=== PATIENT | female | born 2005 | race Two or more races ===

== ENCOUNTER 2025-01-19 15:50 | Inpatient (IN) | payer OTHER ==
[~2025-01-19] VITALS: Ht 175.3 cm; Wt 99.1 kg
[2025-01-19 19:09] LABS: PLATELET COUNT (AUTO) 222 K/uL (150-450); RED BLOOD CELL COUNT(AUTO) 4.40 MIL/uL (4.00-5.20); RED CELL DISTRIBUTION WIDTH 13.1 % (11.5-14.5); WHITE BLOOD COUNT (AUTO) 7.2 K/uL (4.5-11.0)
[2025-01-19 19:16] LABS: CALCIUM, TOTAL 8.8 mg/dL (8.8-10.5); CREATININE 0.92 mg/dL (0.60-1.30); GLOMERULAR FILTR. RATE CALC > 60 mL/min (>60); GLUCOSE,RANDOM 104 mg/dL (70-110); SODIUM SERUM 141 mmol/L (136-145); UREA NITROGEN, BLOOD 5 mg/dL (7-18)
[2025-01-19 19:52] LABS: COVID AG,FIA SOURCE NASAL SWAB
[2025-01-19 20:24] LABS: SARS-COV2 (COVID) ANTIGEN,FIA Negative (Negative)
[2025-01-19] MEDS: IBUPROFEN 600 MG TABLET PO ONE (20:46)
[2025-01-20 00:15] VITALS: BP 128/95; PULSE 81; RESP 20; TEMP 98.5; O2SAT 95
[2025-01-20] MEDS ORDERED: INFLUENZA VIRUS VACCINE TVS (6MO+) 2025-26/PF 45 MCG/0.5 ML SYRINGE IM. ONE (00:30)
[2025-01-20] MEDS ORDERED: PROMETHAZINE HCL 25 MG TABLET PO PRN (10:15)
[2025-01-20] MEDS ORDERED: OLANZapine 5 MG RAPDIS TABLET PO PRN (10:15)
[2025-01-20] MEDS ORDERED: MAG HYDROX/ALUMINUM HYD/SIMETH ES 30 ML SUSPENSION UDCUP PO PRN (10:15)
[2025-01-20] MEDS ORDERED: LOPERAMIDE HCL 2 MG CAPSULE PO PRN ×2 (10:15)
[2025-01-20] MEDS ORDERED: ACETAMINOPHEN 325 MG TABLET PO PRN (10:15)
[2025-01-20] MEDS ORDERED: MAGNESIUM HYDROXIDE SUSPENSION 30 ML UDCUP PO PRN (10:15)
[2025-01-20] MEDS ORDERED: ZOLPIDEM TARTRATE 10 MG TABLET PO PRN (10:15)
[2025-01-20] MEDS ORDERED: GuaiFENesin/D-METHORPHAN [SUGAR-FREE] 200-20MG/10 ML SYRUP UDCUP PO PRN (10:15)
[2025-01-20] MEDS: POTASSIUM CHLORIDE 20 MEQ ER TABLET PO ONE ×2 (13:15→23:56)
[2025-01-20] MEDS: OLANZapine 5 MG RAPDIS TABLET PO SCH (13:17)
[2025-01-20 15:59] VITALS: BP 124/86; PULSE 71; RESP 17; TEMP 98.1; O2SAT 98
[2025-01-20] MEDS: THIAMINE 100 MG TABLET PO SCH (17:11)
[2025-01-20] MEDS ORDERED: DIVALPROEX SODIUM 500 MG ER TABLET PO SCH (21:00)
[2025-01-20 23:50] VITALS: BP 122/82; PULSE 72; RESP 18; TEMP 97.8; O2SAT 98
[2025-01-20] MEDS: MELATONIN 5 MG TABLET PO SCH (23:55)
[2025-01-20] MEDS: LITHIUM CARBONATE 300 MG CAPSULE PO SCH (23:56)
[2025-01-21 08:17] VITALS: BP 120/67; PULSE 60; RESP 17; TEMP 98.4; O2SAT 98
[2025-01-21] MEDS: ATOMOXETINE HCL 25 MG CAPSULE PO SCH (08:32)
[2025-01-21] MEDS: MULTIVITAMINS WITH MINERALS, THERAPEUTIC TABLET PO SCH (08:32)
[2025-01-21] MEDS: NALTREXONE HCL 50 MG TABLET PO SCH (08:32)
[2025-01-21] MEDS: FOLIC ACID 1 MG TABLET PO SCH (08:32)
[2025-01-21] MEDS: PALIPERIDONE PALMITATE 234 MG/1.5 ML SYRINGE IM ONE (08:44)
[2025-01-21 09:32] LABS: APPEARANCE,URINE CLEAR (CLEAR); GLUCOSE, URINE (UA) NEGATIVE (NEGATIVE); LEUKOCYTE ESTERASE ,URINE NEGATIVE (NEGATIVE); NITRATE,URINE NEGATIVE (NEGATIVE); OCCULT BLOOD,URINE NEGATIVE (NEGATIVE); PH,URINE DRUG SCREEN 7.0 (5.0-8.0); SPECIFIC GRAVITIY, URINE 1.018 (1.003-1.030)
[2025-01-21 09:36] LABS: CHOL/HDL RATIO 3.0 (3.9-5.7); LDL CHOL (CALC.) 95.0 mg/dL (0-130)
[2025-01-21 09:54] LABS: AMPHET/METH SCREEN,URINE NEGATIVE (NEGATIVE); BARBITURATE SCREEN, URINE NEGATIVE (NEGATIVE); CANNABINOID SCREEN,URINE POSITIVE (NEGATIVE); COCAINE SCREEN,URINE POSITIVE (NEGATIVE); METHADONE SCREEN, URINE NEGATIVE (NEGATIVE)
[2025-01-21 09:55] LABS: ALCOHOL, URINE DRUG SCREEN NEGATIVE (NEGATIVE)
[2025-01-21] MEDS: TUBERCULIN, PURIFIED PROTEIN DERIVATIVE 5 TU/0.1 ML SYRINGE ID ONE (16:40)
[2025-01-21 20:14] VITALS: BP 114/81; PULSE 72; RESP 19; TEMP 97.5; O2SAT 97
[2025-01-21] MEDS ORDERED: LITH300C3 PO (22:13)
[2025-01-21] MEDS ORDERED: PALI117D IM (22:13)
[2025-01-21] MEDS ORDERED: ATOM40CA9 PO (22:13)
[2025-01-21] MEDS ORDERED: NALT50TA33 PO (22:13)
[2025-01-21] MEDS ORDERED: PALI156D IM (22:13)
[2025-01-21] MEDS ORDERED: MELA5TAB40 PO (22:13)
[2025-01-22 08:18] VITALS: BP 103/81; PULSE 64; RESP 18; TEMP 97.1; O2SAT 98
[2025-01-22 08:41] VITALS: BP 103/81; PULSE 64; RESP 18; TEMP 97.1; O2SAT 98
[2025-01-22] MEDS: ATOMOXETINE HCL 40 MG CAPSULE PO SCH (08:49)
[2025-01-25] MEDS ORDERED: PALIPERIDONE PALMITATE 156 MG/ML SYRINGE IM ONE (09:00)
== END 2025-01-22 15:10 | disposition home or self-care (01) | DRG 885 ==
LOC: EMS 15:50 → B2S 22:15
PROVIDERS: ADMIT Psychiatry & Neurology Psychiatry; ATTEND Psychiatry & Neurology Psychiatry
PROC: GZ58ZZZ Individual Psychotherapy, Cognitive-Behavioral (ICD-10-PCS; principal; 2025-01-19)
PROC: GZHZZZZ Group Psychotherapy (ICD-10-PCS; 2025-01-19)
PROC: GZ56ZZZ Individual Psychotherapy, Supportive (ICD-10-PCS; 2025-01-19)
DX: F25.9 Schizoaffective disorder, unspecified (principal); E66.9 Obesity, unspecified; F31.9 Bipolar disorder, unspecified; F90.9 Attention-deficit hyperactivity disorder, unspecified type; Z55.9 Problems related to education and literacy, unspecified; Z59.9 Problem related to housing and economic circumstances, unspecified; Z63.9 Problem related to primary support group, unspecified; Z65.3 Problems related to other legal circumstances; Z91.148 Patient's other noncompliance with medication regimen for other reason; Z68.32 Body mass index [BMI] 32.0-32.9, adult
CPT/HCPCS: 80048; 80061; 80307; 81003; 83036; 84132; 84703; 85025; 86592; 90686; 99285; G0480

== ENCOUNTER 2025-01-20 17:50 | Emergency (ER) | payer OTHER ==
[~2025-01-20] VITALS: Ht 175.3 cm; Wt 96.8 kg
[2025-01-20 18:55] VITALS: BP 129/79; PULSE 62; RESP 18; TEMP 98.2; O2SAT 100
[2025-01-21] MEDS ORDERED: ATOM40CA9 PO (22:13)
[2025-01-21] MEDS ORDERED: PALI156D IM (22:13)
[2025-01-21] MEDS ORDERED: LITH300C3 PO (22:13)
[2025-01-21] MEDS ORDERED: PALI117D IM (22:13)
[2025-01-21] MEDS ORDERED: NALT50TA33 PO (22:13)
[2025-01-21] MEDS ORDERED: MELA5TAB40 PO (22:13)
== END 2025-01-20 22:29 | disposition home or self-care (01) ==
LOC: EMS 17:50
DX: S09.90XA Unspecified injury of head, initial encounter (principal); R07.89 Other chest pain; M54.2 Cervicalgia; F25.9 Schizoaffective disorder, unspecified; F31.9 Bipolar disorder, unspecified; F12.90 Cannabis use, unspecified, uncomplicated; Y08.89XA Assault by other specified means, initial encounter; Y93.89 Activity, other specified; Y92.89 Other specified places as the place of occurrence of the external cause; Y99.8 Other external cause status
CPT/HCPCS: 70450; 71046; 72125; 99284